=== PATIENT | male | born 1955 | race Native Hawaiian/Other Pacific Islander ===

== ENCOUNTER 2019-01-17 08:42 | Outpatient (CLI) | payer BC ==
[~2019-01-17 08:42] MED LIST: MICARDIS40 MG PO; NIFE60TA5 PO
[2019-01-17 09:14] LABS: PLATELET COUNT 204 K/uL (142-355)
[2019-01-17 09:49] LABS: POTASSIUM 4.1 mmol/L (3.6-5.2)
== END 2019-01-17 19:58 | disposition home or self-care (01) ==
LOC: LABW 08:42
PROVIDERS: Nurse Practitioner
DX: M79.604 Pain in right leg (principal); R60.0 Localized edema
CPT/HCPCS: 36415; 80053; 84100; 85027; 85379; 85610

== ENCOUNTER 2020-04-23 09:55 | Outpatient (CLI) | payer BC ==
[2020-04-23 10:34] LABS: PLATELET COUNT 270 K/uL (142-355)
== END 2020-04-23 21:42 | disposition home or self-care (01) ==
LOC: LABW 09:55
PROVIDERS: ATTEND Internal Medicine
DX: N18.32 Chronic kidney disease, stage 3b (principal); M10.09 Idiopathic gout, multiple sites
CPT/HCPCS: 36415; 80053; 81000; 82043; 82330; 82570; 83735; 83970; 84100; 84155; 84550; 85027

== ENCOUNTER 2020-04-24 08:20 | Outpatient (CLI) | payer BC | END 2020-04-24 19:58 | disposition home or self-care (01) | LOC: US 08:20 | PROVIDERS: ATTEND Internal Medicine | DX: N18.32 Chronic kidney disease, stage 3b (principal) ==

== ENCOUNTER 2020-06-06 09:42 | Outpatient (CLI) | payer BC ==
[2020-06-06 11:07] LABS: PLATELET COUNT 424 K/uL (142-355)
[2020-06-06 11:15] LABS: POTASSIUM 4.5 mmol/L (3.6-5.2)
== END 2020-06-06 19:48 | disposition home or self-care (01) ==
LOC: LABW 09:42
PROVIDERS: ATTEND Internal Medicine
DX: N18.32 Chronic kidney disease, stage 3b (principal)
CPT/HCPCS: 36415; 80053; 81000; 82043; 82330; 83735; 83970; 84100; 85007; 85027

== ENCOUNTER 2020-07-02 12:52 | Outpatient (CLI) | payer BC ==
[2020-07-02 13:43] LABS: PLATELET COUNT 514 K/uL (142-355)
[2020-07-02 14:15] LABS: POTASSIUM 3.9 mmol/L (3.6-5.2)
== END 2020-07-02 19:22 | disposition home or self-care (01) ==
LOC: LABW 12:52
PROVIDERS: ATTEND Nurse Practitioner
DX: N18.32 Chronic kidney disease, stage 3b (principal); E03.9 Hypothyroidism, unspecified; R63.4 Abnormal weight loss
CPT/HCPCS: 36415; 80053; 81000; 82043; 82330; 82570; 83036; 83516; 83735; 83970; 84100; 84155; 84443; 85027; 85652; 86038; 86225; 86235

== ENCOUNTER 2020-07-04 09:50 | Outpatient (CLI) | payer BC | END 2020-07-04 21:44 | disposition home or self-care (01) | LOC: RAD 09:50 | PROVIDERS: ATTEND Registered Nurse | DX: R05 Cough (principal) ==

== ENCOUNTER 2020-10-04 10:36 | Outpatient (CLI) | payer BC ==
[2020-10-04 11:08] LABS: PLATELET COUNT 179 K/uL (142-355)
[2020-10-04 11:20] LABS: POTASSIUM 4.1 mmol/L (3.6-5.2)
== END 2020-10-04 19:07 | disposition home or self-care (01) ==
LOC: LABW 10:36
PROVIDERS: ATTEND Internal Medicine
DX: N18.32 Chronic kidney disease, stage 3b (principal); E03.9 Hypothyroidism, unspecified; R63.4 Abnormal weight loss
CPT/HCPCS: 36415; 80053; 81000; 82043; 82330; 82570; 83036; 83516; 83735; 83970; 84100; 84155; 84443; 85027; 85652; 86038; 86225; 86235

== ENCOUNTER 2020-11-05 07:38 | Outpatient (CLI) | payer BC | END 2020-11-05 21:46 | disposition home or self-care (01) | LOC: CT 07:38 | PROVIDERS: ATTEND Internal Medicine | DX: R63.4 Abnormal weight loss (principal); R10.9 Unspecified abdominal pain | CPT/HCPCS: 36415; 82565; 84520; Q9963 ==

== ENCOUNTER 2021-05-28 11:48 | Outpatient (CLI) | payer BC ==
[2021-05-28 12:08] LABS: PLATELET COUNT 188 K/uL (142-355)
[2021-05-28 12:15] LABS: POTASSIUM 4.3 mmol/L (3.6-5.2)
== END 2021-05-28 19:37 | disposition home or self-care (01) ==
LOC: LABW 11:48
PROVIDERS: ATTEND Internal Medicine
DX: N18.32 Chronic kidney disease, stage 3b (principal)
CPT/HCPCS: 36415; 80053; 81000; 82043; 82330; 82570; 83735; 83970; 84100; 84155; 85027

== ENCOUNTER 2021-09-17 12:19 | Emergency (ER) | payer BC ==
[~2021-09-17] VITALS: Ht 182.9 cm; Wt 122.5 kg
[2021-09-17 12:25] VITALS: BP 125/87; TEMP 97.9
== END 2021-09-17 15:05 | disposition home or self-care (01) ==
LOC: ED 12:19
DX: M25.512 Pain in left shoulder (principal); G89.29 Other chronic pain; M19.012 Primary osteoarthritis, left shoulder
CPT/HCPCS: 93005; 96372; 99283; J1885; J2270; J2930

== ENCOUNTER 2021-11-15 17:01 | Emergency (ER) | payer BC ==
[~2021-11-15] VITALS: Ht 182.9 cm; Wt 122.5 kg
[2021-11-15 17:36] LABS: PLATELET COUNT 195 K/uL (142-355)
[2021-11-15 17:37] LABS: POTASSIUM 4.4 mmol/L (3.6-5.2)
[2021-11-15 20:20] VITALS: BP 00/75; TEMP 98.5
== END 2021-11-15 20:20 | disposition home or self-care (01) ==
LOC: ED 17:01
PROVIDERS: Emergency Medicine
DX: R10.32 Left lower quadrant pain (principal); K57.32 Diverticulitis of large intestine without perforation or abscess without bleeding
CPT/HCPCS: 80048; 81002; 85027; 96360; 96365; 96366; 99284; J0696; J3490

== ENCOUNTER 2021-12-01 09:09 | Outpatient (CLI) | payer BC ==
[2021-12-01 09:49] LABS: PLATELET COUNT 297 K/uL (142-355)
[2021-12-01 10:19] LABS: POTASSIUM 4.6 mmol/L (3.6-5.2)
== END 2021-12-01 18:57 | disposition home or self-care (01) ==
LOC: LABW 09:09
PROVIDERS: ATTEND Internal Medicine
DX: N18.32 Chronic kidney disease, stage 3b (principal)
CPT/HCPCS: 36415; 80053; 81002; 82043; 82306; 82330; 82570; 83735; 83970; 84100; 84156; 85027

== ENCOUNTER 2022-06-08 08:25 | Outpatient (CLI) | payer BC ==
[2022-06-08 08:48] LABS: PLATELET COUNT 187 K/uL (142-355)
[2022-06-08 09:15] LABS: POTASSIUM 4.6 mmol/L (3.6-5.2)
== END 2022-06-08 19:04 | disposition home or self-care (01) ==
LOC: LABW 08:25
PROVIDERS: ATTEND Internal Medicine
DX: N18.32 Chronic kidney disease, stage 3b (principal)
CPT/HCPCS: 36415; 80053; 81002; 82043; 82306; 82330; 82570; 83735; 83970; 84100; 84156; 85027

== ENCOUNTER 2022-07-24 00:09 | Emergency (ER) | payer BC ==
[~2022-07-24] VITALS: Ht 182.9 cm; Wt 122.5 kg
[2022-07-24 00:15] VITALS: TEMP 98.1
[2022-07-24 01:29] LABS: POTASSIUM 4.6 mmol/L (3.6-5.2)
[2022-07-24 01:46] LABS: PLATELET COUNT 193 K/uL (142-355)
[2022-07-24] MEDS ORDERED: TELMISARTAN20 MG PO (05:21)
[2022-07-24] MEDS ORDERED: TAMSULOSIN0.4 MG PO (05:21)
[2022-07-24] MEDS ORDERED: [UNRECOGNIZED DRUG - OTHER] XX (05:22)
[2022-07-24] MEDS ORDERED: FAMOTIDINE40 MG PO (05:22)
[2022-07-24] MEDS ORDERED: ALLO300T23 PO (05:22)
[2022-07-24] MEDS ORDERED: NEBIVOLOL PO (05:22)
[2022-07-24] MEDS ORDERED: LEVO-T25 MCG PO (05:23)
[2022-07-24 07:47] VITALS: BP 121/86
== END 2022-07-24 07:51 | disposition short-term general hospital (02) ==
LOC: ED 00:09
PROVIDERS: Emergency Medicine
DX: K56.600 Partial intestinal obstruction, unspecified as to cause (principal)
CPT/HCPCS: 36415; 80053; 81002; 83690; 84484; 85027; 85610; 85730; 93005; 96374; 96375; 96376; 99284; J2270; J2405; J3490